=== PATIENT | female | born 1995 | race Caucasian/White ===

== ENCOUNTER 2017-08-14 14:38 | Emergency (ER) | payer OTHER ==
[~2017-08-14] VITALS: Ht 162.5 cm; Wt 52.2 kg
[~2017-08-14 14:38] MED LIST: MOTRIN600 MG PO; NKHM; PRENATAL VITAM1 EAC1 PO
[2017-08-14 15:30] LABS: BILIRUBIN NEGATIVE (NEGATIVE); BLOOD NEGATIVE (NEGATIVE); CLARITY CLEAR (CLEAR); COLOR YELLOW (YELLOW); GLUCOSE NEGATIVE (NEGATIVE); KETONE NEGATIVE (NEGATIVE); LEUKO ESTERASE 1+ (NEGATIVE); NITRITE POSITIVE (NEGATIVE); PH 6.5 (5.0-9.0); SPECIFIC GRAVITY 1.015 (1.005-1.030); UROBILINOGEN 0.2 E.U./dl (0.2-1.0)
[2017-08-14 15:46] LABS: BACTERIA 4+
[2017-08-14 15:47] LABS: EPITHELIAL CELLS 16-20
== END 2017-08-14 17:53 | disposition home or self-care (01) ==
LOC: ED 14:38
PROVIDERS: Nurse Practitioner
DX: L50.0 Allergic urticaria (principal); T42.6X5A Adverse effect of other antiepileptic and sedative-hypnotic drugs, initial encounter; Z88.1 Allergy status to other antibiotic agents; Y92.89 Other specified places as the place of occurrence of the external cause

== ENCOUNTER → 2017-08-23 | Outpatient (CLI) | payer OTHER | END | disposition home or self-care (01) | LOC: MRI 12:41 | DX: R51 Headache (principal); R20.0 Anesthesia of skin ==

== ENCOUNTER → 2017-12-07 | Outpatient (CLI) | payer OTHER | END | disposition home or self-care (01) | LOC: RAD 16:16 | DX: J40 Bronchitis, not specified as acute or chronic (principal); R63.4 Abnormal weight loss ==

== ENCOUNTER 2018-06-02 19:14 | Emergency (ER) | payer OTHER ==
[~2018-06-02] VITALS: Ht 162.5 cm; Wt 52.2 kg
[2018-06-02] MEDS ORDERED: CLARITIN10 MG PO (19:49)
[2018-06-02] MEDS ORDERED: AUGMENTIN 875-875 MG PO (19:49)
[2018-06-02] MEDS ORDERED: PREDNISONE20 M1 PO (19:49)
[2018-06-02] MEDS ORDERED: FLONASE ALLERG9.9 ML NAS (19:49)
== END 2018-06-02 19:53 | disposition home or self-care (01) ==
LOC: ED 19:14
DX: J01.00 Acute maxillary sinusitis, unspecified (principal); Z88.1 Allergy status to other antibiotic agents

== ENCOUNTER → 2018-09-11 | Outpatient (CLI) | payer OTHER ==
[~2018-09-11] MED LIST changes: +AUGMENTIN 875-875 MG PO; +CLARITIN10 MG PO; +FLONASE ALLERG9.9 ML NAS; +PREDNISONE20 M1 PO
[2018-09-11 13:55] LABS: HEMATOCRIT 39.5 % (37.0-47.0); HEMOGLOBIN 12.6 g/dl (12.0-16.0); MEAN CELL VOLUME 88.6 fl (81.0-99.0); MEAN CORPUSCULAR HGB 28.3 pg (27.0-31.0); MEAN CORPUSCULAR HGB CONC 31.9 g/dl (33.0-37.0); MEAN PLATELET VOLUME 11.2 fl (9.6-12.3); RED BLOOD COUNT 4.46 10*6/uL (4.10-5.10); WHITE BLOOD COUNT 17.4 10*3/uL (4.8-10.8)
[2018-09-11 14:14] LABS: ALBUMIN 3.9 gm/dl (3.1-4.5); ALKALINE PHOSPHATASE 73 U/L (45-117); BUN 8 mg/dl (7-24); CHLORIDE 106 mmol/L (98-107); CREATININE 0.71 mg/dL (0.55-1.02); POTASSIUM 4.2 mmol/L (3.5-5.1); SGOT/AST 10 IU/L (3-35); SGPT/ALT 19 U/L (12-78); SODIUM 137 mmol/L (136-145); TOTAL PROTEIN 7.5 gm/dL (6.4-8.2)
[2018-09-11 14:21] LABS: VITAMIN D, 25-HYDROXY 21.1 ng/mL (30-100)
== END | disposition home or self-care (01) ==
LOC: LAB 12:56
PROVIDERS: Family Medicine
DX: J32.9 Chronic sinusitis, unspecified (principal); R10.9 Unspecified abdominal pain; R53.83 Other fatigue; E55.9 Vitamin D deficiency, unspecified; J02.9 Acute pharyngitis, unspecified

== ENCOUNTER 2018-12-23 01:08 | Emergency (ER) | payer OTHER ==
[~2018-12-23] VITALS: Ht 162.5 cm; Wt 49.9 kg
[2018-12-23] MEDS ORDERED: CLINDAMYCIN HC300 MG PO (01:21)
[2018-12-23] MEDS ORDERED: Motrin,Rufen800 MG PO (01:21)
== END 2018-12-23 01:45 | disposition home or self-care (01) ==
LOC: ED 01:08
DX: K04.7 Periapical abscess without sinus (principal); Z88.1 Allergy status to other antibiotic agents; Z79.2 Long term (current) use of antibiotics; Z79.899 Other long term (current) drug therapy

== ENCOUNTER → 2019-09-13 | Emergency (ER) | payer OTHER ==
[~2019-09-13] VITALS: Ht 162.5 cm; Wt 49.0 kg
[~2019-09-13] MED LIST changes: +CLINDAMYCIN HC300 MG PO; +Motrin,Rufen800 MG PO
[2019-09-13 11:59] LABS: BASO % 0.1 % (0.0-1.0); EOS % 0.1 % (1.0-4.0); HEMATOCRIT 39.5 % (37.0-47.0); LYMPH # 0.9 10*3/uL (1.3-4.4); LYMPH % 6.5 % (27.0-41.0); MEAN CELL VOLUME 89.4 fl (81.0-99.0); MEAN CORPUSCULAR HGB CONC 32.4 g/dl (33.0-37.0); MEAN PLATELET VOLUME 11.4 fl (9.6-12.3); MONO # 0.5 10*3/uL (0.1-1.0); MONO % 3.5 % (3.0-9.0); NEUT % 89.4 % (47.0-73.0); PLATELET COUNT AUTOMATED 178 10*3/uL (130-400); RED BLOOD COUNT 4.42 10*6/uL (4.10-5.10); RED CELL DISTRI WIDTH 14.2 % (0-14.5); WHITE BLOOD COUNT 13.4 10*3/uL (4.8-10.8)
[2019-09-13 12:12] LABS: ALBUMIN 3.2 gm/dl (3.1-4.5); ALKALINE PHOSPHATASE 116 U/L (45-117); BUN 10 mg/dl (7-24); CHLORIDE 105 mmol/L (98-107); CREATININE 0.75 mg/dL (0.55-1.02); POTASSIUM 3.9 mmol/L (3.5-5.1); SGOT/AST 23 IU/L (3-35); SGPT/ALT 68 U/L (12-78); SODIUM 137 mmol/L (136-145); TOTAL PROTEIN 7.2 gm/dL (6.4-8.2)
== END ==
LOC: ED 10:54
PROVIDERS: Physician Assistant
DX: K04.7 Periapical abscess without sinus (principal); Z88.1 Allergy status to other antibiotic agents

== ENCOUNTER → 2020-11-11 | Outpatient (CLI) | payer OTHER ==
[2020-11-11 10:23] LABS: HEMATOCRIT 40.2 % (37.0-47.0); MEAN CELL VOLUME 84.5 fl (81.0-99.0); MEAN CORPUSCULAR HGB 26.7 pg (27.0-31.0); MEAN CORPUSCULAR HGB CONC 31.6 g/dl (33.0-37.0); MEAN PLATELET VOLUME 10.6 fl (9.6-12.3); RED BLOOD COUNT 4.76 10*6/uL (4.10-5.10); RED CELL DISTRI WIDTH 16.3 % (0-14.5); WHITE BLOOD COUNT 6.3 10*3/uL (4.8-10.8)
[2020-11-11 10:40] LABS: ALBUMIN 3.9 gm/dl (3.1-4.5); ALKALINE PHOSPHATASE 62 U/L (45-117); BUN 8 mg/dl (7-24); CHLORIDE 111 mmol/L (98-107); CHOLESTEROL 150 mg/dL (<200); CREATININE 0.71 mg/dL (0.55-1.02); FREE T4 1.02 ng/dl (0.76-1.46); IRON 65 ug/dL (50-170); LDL CHOLESTEROL 86 mg/dL (9-159); SGOT/AST 9 IU/L (3-35); SGPT/ALT 21 U/L (12-78); SODIUM 139 mmol/L (136-145); TOTAL IRON BINDING CAPACITY 415 ug/dl (250-450); TRIGLYCERIDES 77 mg/dl (<150)
[2020-11-11 10:45] LABS: TOTAL PROTEIN 7.5 gm/dL (6.4-8.2)
[2020-11-11 11:06] LABS: VITAMIN D, 25-HYDROXY 25.1 ng/mL (30-100)
[2020-11-12 05:06] LABS: RHEUMATOID ARTHRITIS FACTOR <10.0 IU/mL (0.0-13.9)
[2020-11-12 15:07] LABS: EPSTEIN-BARR VCA IGG AB >600.0 U/mL (0.0-17.9); EPSTEIN-BARR VCA IGM AB <36.0 U/mL (0.0-35.9)
== END | disposition home or self-care (01) ==
LOC: LAB 10:03
PROVIDERS: ATTEND Family Medicine
DX: E55.9 Vitamin D deficiency, unspecified (principal); L40.9 Psoriasis, unspecified; R53.83 Other fatigue; R51.9 Headache, unspecified; R42 Dizziness and giddiness; M25.50 Pain in unspecified joint; M79.606 Pain in leg, unspecified

== ENCOUNTER 2024-03-29 12:26 | Emergency (ER) | payer OTHER ==
[~2024-03-29] VITALS: Ht 162.5 cm; Wt 51.7 kg
[2024-03-29] MEDS ORDERED: CLINDAMYCIN HCL 300 MG CAPSULE PO ONE (12:50)
[2024-03-29] MEDS ORDERED: Acetaminophen/Hydrocodone 5 MG/325 MG TABLET PO ONE (12:50)
[2024-03-29] MEDS ORDERED: CLEOCIN HCL300 MG PO (12:51)
[2024-03-29] MEDS ORDERED: HYDROCODONE-AC1 EACH PO (12:51)
== END 2024-03-29 13:08 | disposition home or self-care (01) ==
LOC: ED 12:26
DX: K08.89 Other specified disorders of teeth and supporting structures (principal); K03.81 Cracked tooth; Z88.1 Allergy status to other antibiotic agents